=== PATIENT | male | born 1975 | race Caucasian/White ===

== ENCOUNTER 2016-11-05 09:11 | Outpatient (CLI) | payer OTHER | END 2016-11-05 09:12 | disposition home or self-care (01) | DX: K76.0 Fatty (change of) liver, not elsewhere classified (principal); R19.01 Right upper quadrant abdominal swelling, mass and lump ==

== ENCOUNTER 2016-11-16 07:44 | Outpatient (CLI) | payer OTHER ==
[2016-11-16] MEDS ORDERED: IOPAMIDOL-300 50 ML VIAL PO ONE (09:41)
[2016-11-16] MEDS ORDERED: IOPAMIDOL-300 100 ML VIAL IVP ONE (09:41)
== END 2016-11-16 07:45 | disposition home or self-care (01) ==
DX: D18.03 Hemangioma of intra-abdominal structures (principal); K76.0 Fatty (change of) liver, not elsewhere classified
CPT/HCPCS: 74177; Q9967